=== PATIENT | male | born 1950 | race Caucasian/White ===

== ENCOUNTER 2024-01-18 10:30 | Emergency (ER) | payer BC, SELFPAY ==
[2024-01-18 10:31] VITALS: BP 178/84
--- NOTE | 2024-01-18 10:55 | ED.GENMED ---
History of Present Illness
General
Chief Complaint: Visual Problem
Time Seen by Provider: 01/18/24 10:43
History of Present Illness
History of Present Illness:
HPI: Patient was sent here from Dr. Joseph's office and was found to have a branch artery occlusion. He had sudden onset of right sided vision loss that started last night.
EXAM:
GENERAL: Well appearing in no distress
HEENT: Moist oral mucosa, both pupils are dilated (was dilated at Dr. Joseph's office)
CARDIOVASCULAR: No murmurs, normal heart rate, regular rhythm, No chest wall tenderness
PULMONARY: No respiratory distress, breath sounds are clear and equal
ABDOMEN: Soft with no peritoneal signs, no tenderness
NEUROLOGIC: Excellent strength all extremities, no coordination deficits, the patient reports some decreased visual acuity to the nasal aspect of the upper right eye, there is no dysarthria or aphasia
PSYCHIATRIC: Appropriate mental status, normal insight and judgement
EXTREMITIES: Nontender, no edema, moves all extremities equally
SKIN: No rash, no lesions
TIME OF INITIAL ENCOUNTER: 10:50 AM
NUMBER AND COMPLEXITY OF PROBLEMS ADDRESSED AT THE ENCOUNTER
� Chronic conditions affecting care: Has had cataract surgery in 2021, melanoma
� Acute Exacerbation and/or Progression of Chronic Illness:
� Differential Diagnosis includes:
AMOUNT AND/OR COMPLEXITY OF DATA TO BE REVIEWED AND ANALYZED
� I performed an independent evaluation of and my interpretation is:
EKG: Sinus 79, left axis deviation, right bundle branch block
CT: CT head shows no acute abnormality
X-rays:
Laboratory Studies:
Other: Ultrasound imaging shows less than 50% stenosis of carotids
� Review of other/old records: The patient was seen here in the emergency department March 2023 diagnosed with right lower lobe pneumonia but was not admitted at that time.
� Clinical information was obtained by an independent historian: I spoke to and daughter at bedside
� Prescriptions/Medications Considered but not given:
� Further testing considered but not performed:
RISK OF COMPLICATIONS AND/OR MORBIDITY OR MORTALITY OF PATIENT MANAGEMENT
� Social determinants of health affecting care: Lives at home, is a professor at [employer]
� Discussion with other providers: I spoke to Dr. Chris gary who recommends carotid ultrasound imaging and Dr. Morillo will read the ultrasound; I also informed Dr. Joseph of the patient's workup.
� Escalation of care including admission/observation vs risk of discharge considered: Neurology recommended antiplatelet and Lipitor. The patient reports some spontaneous improvement of his vision throughout his stay in the
emergency department.
Past History
Past History
ED Past Medical History: Cancer (Melanoma of back excised 3 years ago. No recurrence.)
ED Past Surgical History: Appendectomy and Other (Cataract removal)
Social History
Tobacco: Former smoker (Quit 4 years ago)
Alcohol: Occasional
Drug: None
Personal:
Living: with family
Employment: Retired
Family History
Family History: Cancer (Father with history of liver cancer)
Phy Exam
Physical Exam
Physical Exam:
See HPI
Course
Orders/Labs/Results
Orders:
Orders
01/18/24 10:59
Electrocardiogram (*1) Urgent
Reason for Study: TIA/Stroke
EKG- Treatment ONCE
01/18/24 11:04
US Carotid [US Cerebrovascular] Urgent
Comment:
Reason For Exam: branch retinal artery vision loss R eye
01/18/24 11:09
CT Head W/o Iv Contrast Urgent
Comment:
Reason For Exam: R brach retinal A occlusion vision loss
01/18/24 11:22
Basic Metabolic Panel Urgent
CRP [C-Reactive Protein] Urgent
Cardiovascular Evaluation Urgent
Comment: ADD
Complete Blood Count/With Diff Urgent
ESR [Erythrocyte Sed Rate] Urgent
01/18/24 11:32
Add On- LAB Urgent
Tests Added?: lipid panel
Abnormal Lab Results
01/18/24
11:22
MCH 32.3 H pg
(27.0-31.0)
Lymphocytes % 18.7 L %
(20.5-51.1)
Glucose 115 H mg/dl
(70-99)
Total Cholesterol 222 H mg/dl
(50-199)
01/18/24 11:22
01/18/24 11:22
Vital Signs
Initial and Last Documented VS:
Initial Vital Signs
Temp Pulse Resp BP Pulse Ox
98.7 F 89 18 178/84 97
01/18/24 10:31 01/18/24 10:31 01/18/24 10:31 01/18/24 10:31 01/18/24 10:31
Last Documented Vital Signs
Temp Pulse Resp BP Pulse Ox
98.7 F 75 15 112/96 97
01/18/24 10:31 01/18/24 12:30 01/18/24 12:30 01/18/24 12:17 01/18/24 12:30
*Critical Care Note
Total Time (30-74mins, 75-104mins- exclusive of procedures): Not Applicable
ED Attending Note
-
Portions of this chart may have been created with voice recognition software.� Occasional wrong word or��sound alike� substitutions may have occurred due to the inherent limitations of voice recognition software.
Discharge Plan
Departure
Patient Disposition: Home (Routine Discharge)
Date of Disposition: 01/18/24
Time of Disposition: 12:57
Patient with high blood pressure during this ER visit?: Yes
Discharge Problem:
Branch retinal artery occlusion of right eye
Instructions: BLOOD PRESSURE
Prescriptions:
New
atorvastatin [Lipitor] 10 mg tablet
10 mg PO HS Qty: 30 0RF
No Action
acetaminophen 650 mg Tablet
650 mg PO Q4H PRN (Reason: fever/pain)
amoxicillin-pot clavulanate 875-125 mg tablet
1 tab PO BID 5 Days Qty: 10 0RF
Referrals:
Delano Roy CRNP [Family Provider] -
Ananth Joseph MD [Active] - As needed
Chris Lynn MD [Active] -
Darwin Morillo MD [Active] - As needed
Activity Restrictions/Additional Instructions:
The inflammatory markers that dr. Joseph recommended are both normal (C-reactive protein less than 5 and sed rate is 7). I spoke to her neurologist, Dr. Chris Lynn who recommended that we also check a lipid panel and recommends that you go on
Lipitor regardless. I sent a prescription for Lipitor to your pharmacy. He also recommends that you start a full-strength aspirin daily. Your total cholesterol was elevated at 222 but otherwise the lipid panel was relatively unremarkable. I have
given you the contact information for the neurologist. I have also given you the contact information for Dr. Morillo (vascular surgeon). I spoke to Dr. Morillo, he recommended that you only need to follow-up with him if ophthalmology and/or neurology
recommends.
Carotid ultrasound imaging shows 'Calcified plaque bilateral proximal internal carotid arteries. Velocity profiles consistent with less than 50% bilateral internal carotid artery stenosis. Antegrade flow bilateral vertebral arteries'.
The CAT scan of the brain showed no acute abnormality.
Interventions
Interventions:
*Risk Screen - Suicide Last Done: 01/18/24 10:31
*General Assessment Last Done: 01/18/24 10:31
*Neglect/Abuse Screening Last Done: 01/18/24 10:31
ED- Fall Risk Assessment Last Done: 01/18/24 11:15
*ED COVID-19 Vaccine History Last Done: 01/18/24 11:15
ED- Neurological Assessment Last Done: 01/18/24 11:26
ED Swallowing Screen Last Done: 01/18/24 12:32
Discharge Date and Time
Print Language: [place] CITIZEN
[2024-01-18 11:00] VITALS: BP 152/75
[2024-01-18 11:14] VITALS: BMI 28.2
[2024-01-18 11:25] VITALS: BP 148/91
[2024-01-18 11:39] LABS: % Basophils 0.5 % (0-2); % Eosinophils 0.2 % (0-6); % Immature Granulocytes 0.2 % (0-0.5); % Lymphocytes 18.7 % (20.5-51.1); % Monocytes 7.2 % (1.7-9.3); % Neutrophils 73.2 % (42.2-75.2); Absolute Lymphocytes 1.5 10^3/uL (1.2-3.4); Absolute Monocytes 0.6 10^3/uL (0.1-0.6); Hematocrit 44.1 % (39.0-52.0); Hemoglobin 15.3 g/dL (13.0-18.0); Mean Corp Hgb Conc. 34.7 g/dL (33.0-37.0); Mean Corpuscular Hgb 32.3 pg (27.0-31.0); Mean Corpuscular Volume 93.2 fL (80.0-94.0); Mean Platelet Volume 8.7 fL (7.4-10.4); Nucleated Red Blood Cells % 0 % (-); Platelet Count 204 10^3/uL (130-400); Red Blood Cell Count 4.73 10^6/uL (4.70-6.10); White Blood Cell Count 8.3 10^3/uL (4.8-10.8)
[2024-01-18 11:51] LABS: Blood Urea Nitrogen 19 mg/dl (9-20); Calcium 9.5 mg/dl (8.4-10.2); Carbon Dioxide 23 mmol/L (22-30); Chloride 104 mmol/L (98-107); Estimated Creatinine Clearance 56 ml/min; Glucose 115 mg/dl (70-99); HDL Cholesterol 73 mg/dl; LDL Cholesterol, Calculated 129 mg/dl; Potassium 4.4 mmol/L (3.5-5.1); Sodium 140 mmol/L (135-145); Total Cholesterol 222 mg/dl (50-199); Triglyceride 104 mg/dl (10-149); Very Low Density Lipoprotein 20 mg/dl (0-30); eGFR > 60.00
[2024-01-18 11:54] LABS: Erythrocyte Sed Rate 7 mm/hour (0-20)
[2024-01-18 11:55] LABS: C-Reactive Protein < 5.00 mg/L (0.0-10.00)
--- NOTE | 2024-01-18 12:02 | EDRN ---
While on stretcher in awaiting to go in for CT, pt had to void and ambulated to BR in room and back to stretcher outside of CT.
[2024-01-18 12:17] VITALS: BP 112/96
--- NOTE | 2024-01-18 12:30 | EDRN ---
Dr. Trevino in room w/ pt. Stated no reason for an eye exam as pt came from ophthmologist prior to arrival and pupils are still dilated so would not be accurate.
--- NOTE | 2024-01-18 12:31 | EDRN ---
Dr. Trevino in room w/pt at this time.
[2024-01-18 13:00] VITALS: BP 131/60
== END 2024-01-18 13:35 | disposition home or self-care (01) ==
LOC: EMR 10:30
PROVIDERS: EMERGENCY PHYSICIAN Emergency Medicine; FAMILY PHYSICIAN Nurse Practitioner Family
DX: H34.231 Retinal artery branch occlusion, right eye (principal); Z80.0 Family history of malignant neoplasm of digestive organs; Z85.820 Personal history of malignant melanoma of skin; Z87.891 Personal history of nicotine dependence; Z90.49 Acquired absence of other specified parts of digestive tract
CPT/HCPCS: 99284; 70450; 80048; 80061; 85025; 85652; 86140; 93005; 93880

== ENCOUNTER → 2024-05-03 09:30 | Outpatient (REF) | payer BC, SELFPAY ==
[2024-05-03 13:30] LABS: % Basophils 0.7 % (0-2); % Eosinophils 1.6 % (0-6); % Immature Granulocytes 0.5 % (0-0.5); % Lymphocytes 35.3 % (20.5-51.1); % Monocytes 9.3 % (1.7-9.3); % Neutrophils 52.6 % (42.2-75.2); Absolute Eosinophils 0.1 10^3/uL (0-0.7); Absolute Lymphocytes 1.9 10^3/uL (1.2-3.4); Absolute Monocytes 0.5 10^3/uL (0.1-0.6); Absolute Neutrophils 2.9 10^3/uL (1.4-6.5); Hematocrit 44.8 % (39.0-52.0); Hemoglobin 14.9 g/dL (13.0-18.0); Mean Corp Hgb Conc. 33.3 g/dL (33.0-37.0); Mean Corpuscular Hgb 32.2 pg (27.0-31.0); Mean Corpuscular Volume 96.8 fL (80.0-94.0); Mean Platelet Volume 9.5 fL (7.4-10.4); Nucleated Red Blood Cells % 0 % (-); Platelet Count 201 10^3/uL (130-400); Red Blood Cell Count 4.63 10^6/uL (4.70-6.10); Red Cell Dist. Width 12.2 % (11.5-14.5); White Blood Cell Count 5.5 10^3/uL (4.8-10.8)
[2024-05-03 13:42] LABS: ALT (SGPT) 25 U/L (0-50); AST (SGOT) 32 U/L (17-59); Albumin 4.6 g/dl (3.5-5.0); Alkaline Phosphatase 95 U/L (38-126); Blood Urea Nitrogen 18 mg/dl (9-20); Calcium 9.1 mg/dl (8.4-10.2); Carbon Dioxide 22 mmol/L (22-30); Chloride 105 mmol/L (98-107); Glucose 123 mg/dl (70-99); HDL Cholesterol 83 mg/dl; LDL Cholesterol, Calculated 69 mg/dl; Potassium 4.5 mmol/L (3.5-5.1); Sodium 136 mmol/L (135-145); Total Bilirubin 0.6 mg/dl (0.2-1.3); Total Cholesterol 161 mg/dl (50-199); Total Protein 6.9 g/dl (6.3-8.2); Triglyceride 47 mg/dl (10-149); Very Low Density Lipoprotein 9 mg/dl (0-30); eGFR 57.29
[2024-05-03 14:02] LABS: PSA, Total - Screen 2.16 ng/ml (0.0-4.0)
[2024-05-03 14:20] LABS: Glycohemoglobin (HgbA1c) 5.5 % (4.0-5.6)
== END ==
LOC: HWLAB 09:30
PROVIDERS: ATTENDING PHYSICIAN Nurse Practitioner Family
DX: R73.01 Impaired fasting glucose (principal); N18.31 Chronic kidney disease, stage 3a; Z12.5 Encounter for screening for malignant neoplasm of prostate; Z00.00 Encounter for general adult medical examination without abnormal findings
CPT/HCPCS: 36415; 80053; 80061; 83036; 84443; 85025; G0103